=== PATIENT | female | born 1990 | race Caucasian/White ===

== ENCOUNTER 2017-11-07 17:36 | Emergency (ER) | payer OTHER, BC ==
[2017-11-07 18:54] VITALS: BP 120/71; PULSE 101; RESP 20; TEMP 97.8
--- NOTE | 2017-11-07 20:15 | XR ---
PROCEDURE: XR shoulder complete RT - 3V DATE AND TIME: 11/07/2017 8:05 PM REFERRING PHYSICIAN: Anjel Mcclellan CLINICAL INDICATION: PHH, Pain TECHNIQUE: Department protocol. COMPARISON: None FINDINGS: There is no fracture or malalignment. The soft tissues are unremarkable. IMPRESSION: NO ACUTE PROCESS.
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
--- NOTE | 2017-11-11 01:25 | CDI ---
Documentation Clarification OP Dear Anjel Mcclellan,PAC Please do addendum to ED report for missing specific muscle strain location. Thank you, Garland Plascencia Weed Cooking Operator If you have any questions, please contact Textbook Associate at [phone] [facility]
== END 2017-11-07 20:54 | disposition home or self-care (01) ==
LOC: EC 17:36
DX: S46.811A Strain of other muscles, fascia and tendons at shoulder and upper arm level, right arm, initial encounter (principal); F31.9 Bipolar disorder, unspecified; F17.200 Nicotine dependence, unspecified, uncomplicated; Z79.3 Long term (current) use of hormonal contraceptives; Z79.899 Other long term (current) drug therapy; V49.40XA Driver injured in collision with unspecified motor vehicles in traffic accident, initial encounter; Y92.410 Unspecified street and highway as the place of occurrence of the external cause
CPT/HCPCS: 99283

== ENCOUNTER → 2018-06-23 | Outpatient (CLI) | payer BC ==
--- NOTE | 2018-06-24 07:25 | US ---
EXAMINATION TYPE: US pelvis complete transvag DATE OF EXAM: 06/23/2018 COMPARISON: 04/29/2014 CLINICAL HISTORY: N92.1 Menorrhagia. Pelvic pain, irregular menses, 2 prior c-sections TECHNIQUE: Transvaginal (TV) and Transabdominal (TA) . Transabdominal sonographic images of the pel vis were acquired. Transvaginal sonographic images were medically necessary to better assess the fol lowing anatomy: uterus, right ovary Date of LMP: 2 weeks ago EXAM MEASUREMENTS: Uterus: 11.6 x 4.4 x 5.7 cm Endometrial Stripe: 1.1 cm Right Ovary: 3.5 x 2.9 x 1.9 cm Left Ovary: 2.8 x 3.2 x 1.2 cm 1. Uterus: Anteverted heterogenous, multiple calcifications noted anterior to endometrium, Nabothi an cysts 2. Endometrium: wnl 3. Right Ovary: isoechoic area = 2.3 x 1.5 x 2.0cm 4. Left Ovary: follicles noted 5. Bilateral Adnexa: wnl 6. Posterior cul-de-sac: wnl IMPRESSION: 1. Nonspecific myometrial heterogeneity and calcifications may reflect small leiomyomatous change. 2. Isoechoic lesion right ovary may reflect a hemorrhagic cyst. Lesion of other etiology not excluded . Follow-up in 6 weeks is advised.
== END | disposition home or self-care (01) ==
LOC: RADUSWWP 15:45
PROVIDERS: ATTEND Internal Medicine
DX: N85.8 Other specified noninflammatory disorders of uterus (principal); N83.9 Noninflammatory disorder of ovary, fallopian tube and broad ligament, unspecified
CPT/HCPCS: 76830; 76856

== ENCOUNTER 2018-09-25 06:01 | Day surgery (SDC) | payer BC ==
[2018-09-23 12:43] VITALS: BMI 25.8
--- NOTE | 2018-09-23 16:49 | P.HPOB ---
History of Present Illness H&P Date: 09/23/18 Chief Complaint: Pelvic pain Myriam is a 28-year-old female with a history of cyclic pelvic pain. The pain is been going on for a extended period of time and despite an nostril anti- inflammatories and control the pain has continued. She is scheduled for a diagnostic laparoscopy with robotic assist for suspected endometriosis. Risks /benefits/alternatives to this procedure were discussed with the patient in detail and all questions were answered for her prior to proceeding to the operating room. She and I did discuss return to control pills or Lupron Depakote as a potential and. All treatment but she would prefer to have an absent diagnosis and potentially treatment at the same time. Risks/benefits/ alternatives to this did include bleeding and infection/damage to bladder, bowel , vascular injuries, nerve damage, ureteral injuries, potential injuries to fallopian tubes or ovaries depending aware that endometriosis is located. 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 History of Any Multi-Drug Resistant Organisms: None Reported Past Surgical History: Section, Cholecystectomy, Tubal Ligation Past Anesthesia/Blood Transfusion Reactions: Previous Problems w/ Anesthesia, Motion Sickness, Postoperative Nausea & Vomiting (PONV) Additional Past Anesthesia/Blood Transfusion Reaction / Comment(s): difficulty waking up Past Psychological History: Bipolar, Depression Smoking Status: Current every day smoker Past Alcohol Use History: Rare Additional Past Alcohol Use History / Comment(s): SMOKES 1/2- 1 PPD. SMOKING SINCE 16 YEARS OLD - SMOKING 10 YEARS. Past Drug Use History: None Reported - Past Family History Mother Family Medical History: No Reported History Medications and Allergies Home Medications Medication Instructions Recorded Confirmed Type Cetirizine HCl [Zyrtec] 10 mg PO HS 11/07/17 09/23/18 History Albuterol Inhaler [Ventolin Hfa 1 - 2 puff INHALATION RT-Q6H PRN 09/23/18 History Inhaler] Ibuprofen 400 mg PO DAILY PRN 09/23/18 09/23/18 History lamoTRIgine [LaMICtal] 150 mg PO HS 09/23/18 09/23/18 History Allergies Allergy/AdvReac Type Severity Reaction Status Date / Time povidone-iodine Allergy Severe CHEMICAL Verified 09/23/18 12:48 [From Betadine] AGUILERA soap [From Betadine] Allergy Severe CHEMICAL Verified 09/23/18 12:48 AGUILERA Exam Osteopathic Statement: *. No significant issues noted on an osteopathic structural exam other than those noted in the History and Physical/Consult. Intake and Output 09/23/18 09/23/18 09/23/18 06:59 14:59 22:59 Other: Weight 72.575 kg - OBG Physical Exam Breast: both: normal (no masses) Abdomen: bowel sounds normal, no diffuse tenderness, no bruit present, no guarding noted, no hepatomegaly, no splenomegaly, no mass Vulva: both: normal Vagina: normal moisture, no discharge Cervix: no lesion, no discharge Uterus: normal size, normal contour Adnexa: both: normal Anus/Rectum: normal perianal skin, no rectal mass, no hemorrhoids, heme negative
[~2018-09-25 06:01] MED LIST: DEXAMETHASONE SOD PHOSPHATE 10 MG/ML 1 ML VIAL IV ONE; HYDROmorphone 0.5 MG/0.5 ML SYRINGE IVP PRN; MIDAZOLAM 2 MG/2 ML VIAL IV PRN; ONDANSETRON 4 MG/2 ML VIAL IVP ONE; SCOPOLAMINE 1.5MG/72HR PATCH TRANSDERM ONE; ceFAZolin IN SWFI 2 GM/20 ML SYRINGE IVP ONE
[2018-09-25] MEDS: LACTATED RINGERS 1,000 ML IV SCH (07:05)
[2018-09-25] MEDS ORDERED: LIDOCAINE 1% 20 ML VIAL (10MG/ML) FOR IV START INTRADERMA ONE (07:06)
[2018-09-25] MEDS ORDERED: SUCCINYLCHOLINE CHLORIDE 100 MG/5 ML SYR IV ONE (07:42)
[2018-09-25] MEDS ORDERED: LIDOCAINE 1% INJ 10MG/ML (20 ML MDV) ONE (07:42)
[2018-09-25] MEDS ORDERED: ROCURONIUM BROMIDE 10 MG/ML 10 ML VIAL IV ONE (07:42)
[2018-09-25] MEDS ORDERED: fentaNYL (PF) 50 MCG/ML 2 ML AMP ONE (07:42)
[2018-09-25] MEDS ORDERED: PROPOFOL 10 MG/ML 20 ML VIAL IV ONE (07:42)
[2018-09-25] MEDS ORDERED: GLYCOPYRROLATE 0.2 MG/ML 2 ML VIAL ONE (07:42)
[2018-09-25] MEDS ORDERED: NEOSTIGMINE 1 MG/ML 10 ML VIAL ONE (07:42)
[2018-09-25] MEDS ORDERED: MIDAZOLAM 2 MG/2 ML VIAL ONE (07:42)
[2018-09-25] MEDS ORDERED: KETOROLAC 30 MG/ML 1 ML VIAL ONE (07:42)
[2018-09-25] MEDS ORDERED: BUPIVACAINE (PF) 0.25% 30 ML VIAL SQ ONE (08:05)
--- NOTE | 2018-09-25 08:44 | P.OP ---
Date of Procedure: 09/25/18 Preoperative Diagnosis: Pelvic pain Postoperative Diagnosis: Same Procedure(s) Performed: Diagnostic laparoscopy Anesthesia: DARRELL Surgeon: Saul Berger Pathology: none sent Condition: stable Disposition: same day Operative Findings: Normal uterus, tubes, ovaries. Fish cups noted. Questionable hernia abdomen left side unclear why this would have significant impact on cyclic pelvic pain Description of Procedure: Patient was taken to the operating suite where he general anesthetic was found be adequate. She was prepped and draped in the normal sterile fashion and placed in dorsal lithotomy position. Initially a speculum was inserted into the vagina and the anterior lip of cervix was identified and grasped with single -tooth tenaculum. Uterus was then sounded and a uterine manipulator was inserted without difficulty. Other incidents were then removed and red rubber catheter was used to drain the bladder of urine. Once this was accomplished gloves were changed, and attention was turned to the abdominal portion of the procedure. 2 mL of quarter percent Marcaine was injected periumbilically. Through this injected anesthetic a 5 mm skin incision was made and through this incision under direct visualization with an optical trocar and sleeve the camera was inserted. Once peritoneal placement was assured gas was allowed to fully insufflate the abdomen and patient was then placed in steep Trendelenburg position. A second 5 mm skin incision was then made in the midline through the scar and a second port and sleeve were inserted. This was done to help maneuver the ovaries and uterus as I did not note any endometriosis on my initial placement of the camera and was therefore unlikely to use the robot. Appendix. Normal gallbladder. Normal one small adhesion of the omentum to the anterior abdominal wall the right side possible small hernias on the left side of the abdomen but no other gross findings. Fallopian tubes noted to have Filshie clips but otherwise appear unremarkable. Ovaries are unremarkable there is no endometrial implants in the posterior cul-de-sac or ovarian fossa. Therefore all incidents removed and gas was allowed to expel from the abdomen. 5 deep breaths were provided during this process. 4-0 Vicryl was then used to close incision subcuticularly all other instruments were removed. Several cc of quarter percent Marcaine was then injected around the incisions. Patient was then taken to the recovery room in stable and satisfactory condition. Plan - Discharge Summary Discharge Rx Participant: Yes New Discharge Prescriptions: New Ibuprofen [Motrin] 600 mg PO Q6HR PRN #30 tab PRN Reason: Pain No Action Cetirizine HCl [Zyrtec] 10 mg PO HS Albuterol Inhaler [Ventolin Hfa Inhaler] 1 - 2 puff INHALATION RT-Q6H PRN PRN Reason: Shortness Of Breath lamoTRIgine [LaMICtal] 150 mg PO HS Ibuprofen 400 mg PO DAILY PRN PRN Reason: Pain Discharge Medication List Cetirizine HCl [Zyrtec] 10 mg PO HS 11/07/17 [History] Albuterol Inhaler [Ventolin Hfa Inhaler] 1 - 2 puff INHALATION RT-Q6H PRN [History] Ibuprofen 400 mg PO DAILY PRN 09/23/18 [History] lamoTRIgine [LaMICtal] 150 mg PO HS 09/23/18 [History] Ibuprofen [Motrin] 600 mg PO Q6HR PRN #30 tab 09/25/18 [Rx] Follow up Appointment(s)/Referral(s): Saul Berger DO [Doctor of Osteopathic Medicine] - 2 Weeks Activity/Diet/Wound Care/Special Instructions: No heavy lifting, limit stairs and driving, and pelvic rest. If any high temperatures, heavy bleeding, or severe pain call my office
[2018-09-25 08:50] VITALS: RESP 16
[2018-09-25 08:57] VITALS: TEMP 97.8
[2018-09-25 09:44] VITALS: BP 99/67; PULSE 70
== END 2018-09-25 10:05 | disposition home or self-care (01) ==
LOC: OR 06:01
PROVIDERS: ATTEND Obstetrics & Gynecology
DX: R10.2 Pelvic and perineal pain (principal); K66.0 Peritoneal adhesions (postprocedural) (postinfection); J45.909 Unspecified asthma, uncomplicated; E07.9 Disorder of thyroid, unspecified; F17.210 Nicotine dependence, cigarettes, uncomplicated; F31.9 Bipolar disorder, unspecified; G43.909 Migraine, unspecified, not intractable, without status migrainosus; Z98.51 Tubal ligation status; Z79.899 Other long term (current) drug therapy; Z91.048 Other nonmedicinal substance allergy status
CPT/HCPCS: 49320; 81025; J2250; J1100; J2710; J2405; J2001; J3010; J1885; J0330; J2704; J0690